=== PATIENT | female | born 1960 | race Caucasian/White ===

== ENCOUNTER → 2018-01-25 | Outpatient (CLI) | payer BC ==
--- NOTE | 2018-02-02 08:34 | MM ---
Reason for exam: screening (asymptomatic). Last mammogram was performed 1 year and 2 months ago. History: Patient is postmenopausal. Family history of breast cancer in mother at age 65. Physical Findings: A clinical breast exam by your physician is recommended on an annual basis and results should be correlated with mammographic findings. MG Screening Mammo w CAD Bilateral CC and MLO view(s) were taken. Prior study comparison: November 11, 2016, mammogram, performed at [facility]. November 08, 2015, mammogram, performed at [facility]. There are scattered fibroglandular densities. Finding: There are typically benign calcifications in both breasts. No significant changes in finding since November 11, 2016 and November 08, 2015. ASSESSMENT: Benign, BI-RAD 2 RECOMMENDATION: Routine screening mammogram of both breasts in 1 year.
== END | disposition home or self-care (01) ==
LOC: RADMAMWWP 07:25
PROVIDERS: ATTEND Family Medicine
DX: Z12.31 Encounter for screening mammogram for malignant neoplasm of breast (principal)
CPT/HCPCS: 77067

== ENCOUNTER → 2019-01-31 | Outpatient (CLI) | payer BC ==
--- NOTE | 2019-02-01 09:22 | MM ---
Reason for exam: screening (asymptomatic). Last mammogram was performed 1 year ago. History: Patient is postmenopausal. Family history of breast cancer in mother at age 65. Physical Findings: A clinical breast exam by your physician is recommended on an annual basis and results should be correlated with mammographic findings. MG 3D Screening Mammo W/Cad Bilateral CC and MLO view(s) were taken. Prior study comparison: January 25, 2018, bilateral MG screening mammo w CAD. November 11, 2016, mammogram, performed at [facility]. There are scattered fibroglandular densities. Superior right breast nodularity becomes more apparent on 3D images but densities here are unchanged. No significant changes when compared with prior studies. ASSESSMENT: Benign, BI-RAD 2 RECOMMENDATION: Routine screening mammogram of both breasts in 1 year.
== END ==
LOC: RADMAMWWP 06:53
PROVIDERS: ATTEND Family Medicine
DX: Z12.31 Encounter for screening mammogram for malignant neoplasm of breast (principal)
CPT/HCPCS: 77063; 77067

== ENCOUNTER 2019-03-07 09:21 | Day surgery (SDC) | payer BC ==
[2019-03-03 15:00] VITALS: BMI 23.9
[~2019-03-07 09:21] MED LIST: LACTATED RINGERS 1,000 ML IV SCH
[2019-03-07 09:57] VITALS: RESP 16; TEMP 97.2
[2019-03-07] MEDS ORDERED: LIDOCAINE 1% 20 ML VIAL (10MG/ML) FOR IV START INTRADERMA ONE (09:57)
[2019-03-07] MEDS ORDERED: PROPOFOL 10 MG/ML 20 ML VIAL IV ONE (10:14)
[2019-03-07] MEDS ORDERED: MIDAZOLAM 2 MG/2 ML VIAL ONE (10:14)
[2019-03-07] MEDS ORDERED: fentaNYL (PF) 50 MCG/ML 2 ML AMP ONE (10:14)
--- NOTE | 2019-03-07 11:12 | P.PCN ---
Date of Procedure: 03/07/19 Description of Procedure: BRIEF HISTORY: Patient is a 58-year-old pleasant female scheduled for an elective colonoscopy as a part of screening for malignant neoplasm of the colon. The patient reports last colonoscopy 8 years ago. She does report family history of colon cancer in her paternal aunt. She does report some loose stool at the beginning of the year but has started supplementation with Benefiber and is now reporting one formed bowel movement every day or every other day. PROCEDURE PERFORMED: Colonoscopy with polypectomy. PREOPERATIVE DIAGNOSIS: Screening for malignant neoplasm colon, Last colonoscopy 8 years ago. ESTIMATED BLOOD LOSS: Minimal. IV sedation per Anesthesia. PROCEDURE: After informed consent was obtained, the patient, was brought into the endoscopy unit. IV sedation was administered by Anesthesia under continuous monitoring. Digital rectal examination was normal. Initially the Olympus CF-190 flexible video colonoscope was then inserted in the rectum, gradually advanced into the cecum without any difficulty. Careful examination was performed as the scope was gradually being withdrawn. Ileocecal valve and the appendiceal orifice were visualized and appeared normal. Prep was excellent. Mucosa of the cecum, ascending colon, transverse colon, descending colon, sigmoid colon, and rectum appeared normal. Mild scattered sigmoid diverticula. 3 mm sessile sigmoid polyp removed with cold forceps. Mild internal hemorrhoids. Retroflexion was performed in the rectum and no lesions were seen. The patient tolerated the procedure well. IMPRESSION: Diminutive sigmoid polyp cold forceps. Mild sigmoid diverticulosis. Mild internal hemorrhoids. RECOMMENDATIONS: Findings of this examination were discussed with the patient he has been. Okay for a high-fiber diet. Await pathology from polypectomy. Anticipate repeat colonoscopy in 5 years pending pathology from polypectomy.
[2019-03-07 11:28] VITALS: BP 108/63; PULSE 58
== END 2019-03-07 12:15 | disposition home or self-care (01) ==
LOC: ORWHC2ENDO 09:21
PROVIDERS: ATTEND Internal Medicine
DX: Z12.11 Encounter for screening for malignant neoplasm of colon (principal); K57.30 Diverticulosis of large intestine without perforation or abscess without bleeding; K64.8 Other hemorrhoids; Z80.0 Family history of malignant neoplasm of digestive organs; Z88.2 Allergy status to sulfonamides; Z88.8 Allergy status to other drugs, medicaments and biological substances; Z79.890 Hormone replacement therapy; Z79.899 Other long term (current) drug therapy; E07.9 Disorder of thyroid, unspecified; D12.5 Benign neoplasm of sigmoid colon
CPT/HCPCS: 88305; 45380; J2250; J3010; J2704

== ENCOUNTER → 2020-02-07 | Outpatient (CLI) | payer BC ==
--- NOTE | 2020-02-09 11:26 | MM ---
Reason for exam: screening (asymptomatic). Last mammogram was performed 1 year ago. History: Patient is postmenopausal. Family history of breast cancer in mother at age 65. Physical Findings: A clinical breast exam by your physician is recommended on an annual basis and results should be correlated with mammographic findings. MG 3D Screening Mammo W/Cad Bilateral CC and MLO view(s) were taken. Prior study comparison: January 31, 2019, bilateral MG 3d screening mammo w/cad. January 25, 2018, bilateral MG screening mammo w CAD. The breast tissue is heterogeneously dense. This may lower the sensitivity of mammography. Finding #1: There are two 5-6 mm circumscribed oval mass located 6 cm from the nipple in the upper outer quadrant, anterior middle position of the right breast, one at CC 28/78 and MLO 15/72 and one a CC 42/78 and MLO 26/72. Finding #2: There are typically benign round calcifications in both breasts. There is no discrete abnormality. ASSESSMENT: Incomplete: need additional imaging evaluation, BI-RAD 0 RECOMMENDATION: Ultrasound of the right breast. [facility] will attempt to contact patient to return for ultrasound.
== END | disposition home or self-care (01) ==
LOC: RADMAMWWP 09:09
PROVIDERS: ATTEND Family Medicine
DX: Z12.31 Encounter for screening mammogram for malignant neoplasm of breast (principal); Z80.3 Family history of malignant neoplasm of breast
CPT/HCPCS: 77063; 77067

== ENCOUNTER → 2020-02-15 | Outpatient (CLI) | payer BC ==
--- NOTE | 2020-02-15 08:09 | USB ---
Reason for exam: additional evaluation requested from abnormal screening. History: Patient is postmenopausal. Family history of breast cancer in mother at age 65. Physical Findings: Nurse did not find any significant physical abnormalities on exam. US Breast Workup Limited RT Technologist: Indira Be Right limited breast ultrasound including focal area of concern, retroareolar and axilla demonstrates a 0.4 x 0.4 x 0.3cm cystic lesion at 9 o'clock. These results were verbally communicated with the patient and result sheet given to the patient on 02/15/20. ASSESSMENT: Benign, BI-RAD 2 RECOMMENDATION: Return to routine screening mammogram schedule for both breasts.
== END | disposition home or self-care (01) ==
LOC: RADUSWWP 07:27
PROVIDERS: ATTEND Family Medicine
DX: R92.8 Other abnormal and inconclusive findings on diagnostic imaging of breast (principal)

== ENCOUNTER → 2021-02-11 | Outpatient (CLI) | payer BC ==
--- NOTE | 2021-02-11 09:42 | BD ---
EXAMINATION TYPE: Axial Bone Density DATE OF EXAM: 02/11/2021 COMPARISON: NONE CLINICAL HISTORY: Height: 68 IN Weight: 157 LBS RISK FACTORS HISTORY OF: Family History of Osteoporosis: GRANDMOTHER Active: YES Diet low in dairy products/other sources of calcium: YES Postmenopausal woman: AGE 45 Take estrogen and/or progesterone medications: BIOIDENTICAL HORMONES FOR 20 YEARS MEDICATIONS: Thyroid Medications: YES Which medication: LEVOTHYROXINE How Lon YEARS Additional Medications: VIT D, LEVOTHYROXINE, MAGNESIUM, ZINC, FISH OIL, BIOTIN EXAM MEASUREMENTS: Bone mineral densitometry was performed using the [employer] System. Bone mineral density as measured about the Lumbar spine is: ----- L1-L4(G/cm2): 1.193 T Score Values are as follows: ----- L2: -0.6 ----- L3: 0.4 ----- L4: 0.3 ----- L1-L4: 0.1 Bone mineral density BASELINE Bone mineral density about the R hip (g/cm2): 1.086 Bone mineral density about the L hip (g/cm2): 1.097 T Score values are as follows: -----R Neck: 0.3 -----L Neck: 0.4 -----R Total: 0.5 -----L Total: 0.1 Bone mineral density BASELINE IMPRESSION: Normal bone mineral density. NOTE: T-SCORE=SD OF THE YOUNG ADULT MEAN.
--- NOTE | 2021-02-12 10:09 | MM ---
Reason for exam: screening (asymptomatic). Last mammogram was performed 1 year ago. History: Patient is postmenopausal. Family history of breast cancer in mother at age 65. Took estrogen for 20 years. Took progesterone for 20 years. Physical Findings: A clinical breast exam by your physician is recommended on an annual basis and results should be correlated with mammographic findings. MG 3D Screening Mammo W/Cad Bilateral CC and MLO view(s) were taken. XCCL view(s) were taken of the right breast. Prior study comparison: February 07, 2020, bilateral MG 3d screening mammo w/cad. January 31, 2019, bilateral MG 3d screening mammo w/cad. There are scattered fibroglandular densities. ASSESSMENT: Negative, BI-RAD 1 RECOMMENDATION: Routine screening mammogram of both breasts in 1 year.
== END | disposition home or self-care (01) ==
LOC: RADMAMWWP 08:08
PROVIDERS: ATTEND Family Medicine
DX: Z12.31 Encounter for screening mammogram for malignant neoplasm of breast (principal); Z78.0 Asymptomatic menopausal state; Z80.3 Family history of malignant neoplasm of breast
CPT/HCPCS: 77063; 77067; 77080

== ENCOUNTER → 2022-02-17 | Outpatient (CLI) | payer BC ==
--- NOTE | 2022-02-18 20:04 | MM ---
Reason for Exam: Screening (asymptomatic). Last screening mammogram was performed 12 month(s) ago. Patient History: Menarche at age 13. First Full-Term at age 29. Postmenopausal. Patient used Estrogen for 20 years. Patient used Progesterone for 20 years. Mother had breast cancer, age 65. Risk Values: Melonie 5 year model risk: 2.9%. NCI Lifetime model risk: 13.5%. Prior Study Comparison: 01/31/2019 Bilateral Screening Mammogram, [facility]. 02/07/2020 Bilateral Screening Mammogram, [facility]. 02/11/2021 Bilateral Screening Mammogram, [facility]. Tissue Density: There are scattered fibroglandular densities. Findings: Analyzed By CAD. Chronic nodularity right breast. Benign oil cyst calcifications bilaterally. No significant change from prior exams. Overall Assessment: Benign, BI-RAD 2 Management: Screening Mammogram of both breasts in 1 year. 1. Patient should continue monthly self breast exams. 2. A clinical breast exam by your physician is recommended on an annual basis. 3. This exam should not preclude additional follow-up of suspicious palpable abnormalities. Electronically signed and approved by: Kecia Dejesus M.D. Radiologist
== END | disposition home or self-care (01) ==
LOC: RADMAMWWP 08:09
PROVIDERS: ATTEND Family Medicine
DX: Z12.31 Encounter for screening mammogram for malignant neoplasm of breast (principal)
CPT/HCPCS: 77063; 77067

== ENCOUNTER → 2023-03-02 | Outpatient (CLI) | payer BC ==
--- NOTE | 2023-03-02 09:46 | MM ---
Reason for Exam: Screening (asymptomatic). Last mammogram was performed 1 year(s) and 1 month(s) ago. Patient History: Menarche at age 13. First Full-Term at age 29. Postmenopausal. Patient used Estrogen for 20 years. Patient used Progesterone for 20 years. Mother had breast cancer, age 65. Risk Values: Melonie 5 year model risk: 3.0%. NCI Lifetime model risk: 13.2%. Prior Study Comparison: 02/07/2020 Bilateral Screening Mammogram, [facility]. 02/11/2021 Bilateral Screening Mammogram, [facility]. 02/17/2022 Bilateral MG 3D screening mammo w/cad, [facility]. Tissue Density: There are scattered fibroglandular densities. Findings: Analyzed By CAD. There is no suspicious group of microcalcifications or new suspicious mass in either breast. Overall Assessment: Negative, BI-RAD 1 Management: Screening Mammogram of both breasts in [address] [facility] will attempt to contact patient to return for supplemental views and ultrasound if indicated. Patient should continue monthly self-breast exams. A clinical breast exam by your physician is recommended on an annual basis. This exam should not preclude additional follow-up of suspicious palpable abnormalities. Note on Melonie scores and lifetime risk: 1. A Melonie score greater than 3% is considered moderate risk. If this is the case, consider specialist referral to assess eligibility for a risk reducing agent. 2. If overall lifetime risk for the development of breast cancer is 20% or higher, the patient may qualify for future screening with alternating mammogram and breast MRI. Electronically signed and approved by: Ender Dunn DO
== END | disposition home or self-care (01) ==
LOC: RADMAMWWP 07:06
PROVIDERS: ATTEND Family Medicine
DX: Z12.31 Encounter for screening mammogram for malignant neoplasm of breast (principal); Z78.0 Asymptomatic menopausal state; Z80.3 Family history of malignant neoplasm of breast
CPT/HCPCS: 77063; 77067

== ENCOUNTER 2023-07-03 12:26 | Day surgery (SDC) | payer BC ==
[2023-07-03 13:17] LABS: Glucose,Whole Blood 93 mg/dL (70-110)
[2023-07-03 13:41] VITALS: RESP 16; TEMP 98.5
[2023-07-03] MEDS ORDERED: PROPOFOL 10 MG/ML 20 ML VIAL IV ONE (14:12)
[2023-07-03] MEDS ORDERED: LIDOCAINE 1% INJ 10MG/ML (20 ML MDV) ONE (14:12)
--- NOTE | 2023-07-03 14:29 | P.PCN ---
Date of Procedure: 07/03/23 Procedure(s) Performed: BRIEF HISTORY: Patient is a 63-year-old, pleasant, white female scheduled for an upper endoscopy as a part of evaluation of throat tightness and intermittent dysphagia to solids for the last 6 months duration.. PROCEDURE PERFORMED: Esophagogastroduodenoscopy with biopsy and dilation. PREOPERATIVE DIAGNOSIS: Throat tightness and intermittent dysphagia to solids of 6 months duration. IV sedation per anesthesia. PROCEDURE: After informed consent was obtained, the patient was brought into the endoscopy unit. IV sedation was administered by Anesthesia under continuous monitoring. Initially the Olympus GIF-140 video endoscope was inserted into the mouth. Esophagus intubated without any difficulty. It was gradually advanced into the stomach and duodenum and carefully examined. The bulb and the second part of the duodenum appeared normal. The scope at this time was withdrawn to the stomach, adequately insufflated with air, and upon careful examination, mucosa of the antrum, body, cardia and the fundus appeared normal. The scope was then withdrawn into the esophagus. Small hiatal hernia noted. The GE junction was located at 36 cm from the incisors. There was a distal esophageal Schatzki's ring identified that was dilated using 15 and 16.5 mm TTS balloon for 30 seconds. Following the dilation was mucosal tears brisk oozing identified and hence further dilation was not performed. There was circumferential erythema the GE junction consistent with LA grade a reflux esophagitis. Biopsies were done from the distal esophagus. The rest of the esophagus appeared normal. The proximal cervical esophagus was carefully examined and appeared normal and the patient tolerated the procedure well. IMPRESSION: 1. Distal esophageal Schatzki's ring status post balloon dilation using 15 and 16.5 mm TTS balloon as described above. 2. Small hiatal hernia 3. Mild erythema of the GE junction consistent with LA grade a reflux esophagitis. RECOMMENDATIONS: The findings of this examination were discussed with the patient as well as her family. Follow with the biopsy results. She was advised to be on clear liquids for lunch. Continue with Prilosec 20 mg daily and follow antrum reflux measures..
[2023-07-03 14:51] VITALS: BP 133/83
[2023-07-03 15:15] VITALS: PULSE 73
== END 2023-07-03 15:17 | disposition home or self-care (01) ==
LOC: ORWHC2ENDO 12:26
PROVIDERS: ATTEND Internal Medicine Gastroenterology
DX: K20.90 Esophagitis, unspecified without bleeding (principal); K22.2 Esophageal obstruction; K44.9 Diaphragmatic hernia without obstruction or gangrene; E03.9 Hypothyroidism, unspecified; K21.9 Gastro-esophageal reflux disease without esophagitis; Z88.2 Allergy status to sulfonamides; Z98.890 Other specified postprocedural states; Z91.048 Other nonmedicinal substance allergy status; Z79.890 Hormone replacement therapy
CPT/HCPCS: 88305; 43239; 43249; J2001; J2704; C1726

== ENCOUNTER → 2024-04-04 | Outpatient (CLI) | payer BC ==
--- NOTE | 2024-04-22 12:21 | MM ---
Reason for Exam: Screening (asymptomatic). Last mammogram was performed 1 year(s) and 1 month(s) ago. Patient History: Menarche at age 13. First Full-Term at age 29. Postmenopausal. Patient used Estrogen for 20 years. Patient used Progesterone for 20 years. Mother had breast cancer, age 65. Risk Values: Melonie 5 year model risk: 3.2%. NCI Lifetime model risk: 12.4%. Prior Study Comparison: 02/11/2021 Bilateral Screening Mammogram, [facility]. 02/17/2022 Bilateral MG 3D screening mammo w/cad, [facility]. 03/02/2023 Bilateral MG 3D screening mammo w/cad, [facility]. Tissue Density: There are scattered areas of fibroglandular density. Findings: Analyzed By CAD. Right breast: There is no suspicious group of microcalcifications or new suspicious mass. Benign-appearing calcifications right breast. Left breast: There is no suspicious group of microcalcifications or new suspicious mass. Benign-appearing calcifications left breast. Overall Assessment: Negative, BI-RAD 1 Management: Screening Mammogram of both breasts in [address] [facility] will attempt to contact patient to return for supplemental views and ultrasound if indicated. Patient should continue monthly self-breast exams. A clinical breast exam by your physician is recommended on an annual basis. This exam should not preclude additional follow-up of suspicious palpable abnormalities. Note on Melonie scores and lifetime risk: 1. A Melonie score greater than 3% is considered moderate risk. If this is the case, consider specialist referral to assess eligibility for a risk reducing agent. 2. If overall lifetime risk for the development of breast cancer is 20% or higher, the patient may qualify for future screening with alternating mammogram and breast MRI. Electronically signed and approved by: Ender Dunn DO
== END | disposition home or self-care (01) ==
LOC: RADMAMWWP 03-28 07:23
PROVIDERS: ATTEND Family Medicine
DX: Z12.31 Encounter for screening mammogram for malignant neoplasm of breast
CPT/HCPCS: 77063; 77067

== ENCOUNTER 2024-05-27 10:34 | Day surgery (SDC) | payer BC ==
[2024-05-25 09:57] VITALS: BMI 24.7
[2024-05-27 11:44] VITALS: TEMP 97.1
[2024-05-27] MEDS: LACTATED RINGERS 1,000 ML IV SCH (11:52)
[2024-05-27] MEDS: IV FLUID CONTINUATION 1,000 ML IV ONE (11:52)
[2024-05-27] MEDS ORDERED: PROPOFOL 10 MG/ML 20 ML VIAL IV ONE (12:23)
--- NOTE | 2024-05-27 12:39 | P.PCN ---
Date of Procedure: 05/27/24 Procedure(s) Performed: BRIEF HISTORY: Patient is a 64-year-old pleasant white female scheduled for an elective colonoscopy as a part of screening for colon cancer and family history of colon cancer. Her maternal aunt was diagnosed with colon cancer in her late 60s. PROCEDURE PERFORMED: Colonoscopy snare polypectomy. PREOPERATIVE DIAGNOSIS: Screening for colon cancer/family history of colon cancer. IV sedation per Anesthesia. PROCEDURE: After informed consent was obtained, the patient, was brought into the endoscopy unit. IV sedation was administered by Anesthesia under continuous monitoring. Digital rectal examination was normal. Initially the Olympus CF-160 flexible video colonoscope was then inserted in the rectum, gradually advanced into the cecum without any difficulty. Careful examination was performed as the scope was gradually being withdrawn. Ileocecal valve and the appendiceal orifice were visualized and appeared normal. Prep was excellent. Mucosa of the cecum, ascending colon, transverse colon, descending colon, appeared normal. In the sigmoid colon there was a 3 mm and 6 mm polyp removed by cold snare polypectomy. Rest of the sigmoid colon, and rectum appeared normal. Retroflexion was performed in the rectum and no lesions were seen. The patient tolerated the proc edure well. IMPRESSION: 3 mm and 6 mm sigmoid colon polyp status post cold snare polypectomy Rest of the colon appeared normal RECOMMENDATIONS: Findings of this examination were discussed with the patient as well as her family. She was advised to follow-up with the biopsy results. If the biopsy reveals adenoma she can have repeat colonoscopy in 5 years..
[2024-05-27 13:15] VITALS: BP 126/70; PULSE 70; RESP 16
== END 2024-05-27 13:20 | disposition home or self-care (01) ==
LOC: ORWHC2ENDO 10:34
PROVIDERS: ATTEND Internal Medicine Gastroenterology
DX: Z80.0 Family history of malignant neoplasm of digestive organs
CPT/HCPCS: 45385; 88305

== ENCOUNTER → 2024-12-12 | Outpatient (CLI) | payer BC ==
--- NOTE | 2024-12-17 22:27 | MR ---
EXAMINATION TYPE: MR knee LT wo con DATE OF EXAM: 12/12/2024 COMPARISON: Outside left knee x-ray October 09, 2024 HISTORY: Left knee pain and locking for 6 months TECHNIQUE: Multiplanar, multisequence images of the knee is performed without IV contrast. FINDINGS: MEDIAL MENISCUS: Anterior and posterior horns are intact without tear. LATERAL MENISCUS: Anterior and posterior horns are intact without tear. CRUCIATE LIGAMENTS: The anterior and posterior cruciate ligaments are intact and unremarkable. COLLATERAL LIGAMENTS: The medial collateral ligament and lateral collateral ligament complex are inta ct and unremarkable. EXTENSOR MECHANISM: Visualized quadriceps and patellar tendons are intact. Increased T2 signal superi or lateral aspect of Hoffa's fat pad. EFFUSION: No significant suprapatellar joint effusion. POPLITEAL CYST: No popliteal/matthews cyst. TRICOMPARTMENT SPACES: Moderate to severe narrowing patellofemoral compartment most prominent inferio rly with mild spurring. Mild to moderate narrowing and mild spurring medial more prominent than later al tibiofemoral compartments. CARTILAGE: Chondromalacia patella with significant full-thickness loss along the inferior aspect of p osterior patellar pole. Some cartilaginous loss medial tibiofemoral compartment. BONE MARROW SIGNAL: Some areas of heterogeneous increased T2 signal along the posterior patellar pole . OTHER: No additional significant abnormality is appreciated. IMPRESSION: 1. Moderate to severe patellofemoral joint arthropathy as detailed above. 2. Mild to moderate degenerative change medial tibiofemoral compartment. 3. Increased signal superior lateral aspect of Hoffa's fat pad, correlate for fat pad impingement syn drome. [facility], , 12/17/2024 10:25 PM
== END | disposition home or self-care (01) ==
LOC: RADMRIMAIN 09:41
PROVIDERS: ATTEND Orthopaedic Surgery
DX: M17.12 Unilateral primary osteoarthritis, left knee (principal); M22.42 Chondromalacia patellae, left knee